=== PATIENT | male | born 1950 | race Caucasian/White ===

== ENCOUNTER 2016-06-25 12:03 | Inpatient (IN) ==
[2016-06-25 13:26] LABS: Hematocrit 32.1 % (37.5-50.1); Hemoglobin 10.4 g/dL (12.9-16.9); Immature Granulocytes % 0.5 % (0-4); Lymphocytes # 0.5 K/mcL (0.6-4.6); Lymphocytes % 5.7 %; Mean Corpuscular HGB Conc 32.4 g/dL (31.6-35.5); Mean Corpuscular Hemoglobin 29.9 pg (28.0-33.3); Mean Corpuscular Volume 92.2 fL (83.0-100.0); Mean Platelet Volume 9.3 fL (9.4-12.4); Monocytes # 0.3 K/mcL (0.0-1.3); Monocytes % 3.3 %; Neutrophils # 8.4 K/mcL (1.6-8.9); Platelet Count 216 K/mcL (140-400); Red Blood Count 3.48 M/mcL (4.19-5.50); Red Cell Distribution Width 13.5 % (11.5-14.5); Segmented Neutrophils % 90.5 %
[2016-06-25 13:39] LABS: INR 1.1; Prothrombin Time 11.7 Seconds (9.4-12.1)
[2016-06-25 13:42] LABS: Activated Partial Thrombo Time 24.7 Seconds (26.0-36.0)
[2016-06-25 13:43] LABS: Alanine Aminotransferase 14 Units/L (0-55); Albumin 2.9 g/dL (3.5-5.0); Albumin/Globulin Ratio 1.1 (1.1-2.2); Alkaline Phosphatase 53 Units/L (38-126); Aspartate Amino Transferase 11 Units/L (5-34); BUN/Creatinine Ratio 62 (6-26); Bilirubin,Total 0.9 mg/dL (0.2-1.2); Blood Urea Nitrogen 55 mg/dL (8-26); Calcium 8.5 mg/dL (8.6-10.8); Carbon Dioxide 20 mEq/L (19-29); Chloride 111 mEq/L (98-109); Globulin 2.6 g/dL (2.4-3.5); Glucose 162 mg/dL (70-99); Osmolality,Calculated 303 (280-300); Potassium 6.2 mEq/L (3.5-4.5); Sodium 137 mEq/L (136-145); Total Protein 5.5 g/dL (6.0-8.3); eGFR For African Americans > 60 (> 60); eGFR For Non-African Americans > 60 (> 60)
[2016-06-25] MEDS ORDERED: 0.9 % Sodium Chloride 1,000 ML ONE (13:48)
[2016-06-25] MEDS ORDERED: 0.9 % Sodium Chloride 1,000 ML IVC ONE ×3 (13:53→14:57)
[2016-06-25] MEDS ORDERED: Ondansetron 4 MG/2 ML VIAL IVP ONE (13:54)
[2016-06-25] MEDS ORDERED: Calcium Gluconate 1,000 MG in D5% in Water 100 ML IVPB ONE (13:54)
[2016-06-25] MEDS ORDERED: Insulin Human Regular 10 UNIT in 0.9 % Sodium Chloride 10 ML IV ONE (13:55)
[2016-06-25] MEDS ORDERED: *HR* Dextrose 50 % in Water (Syg) 50 ML SYRINGE IVP STA (13:55)
[2016-06-25] MEDS ORDERED: Albuterol 2.5 MG/3 ML NEBULIZER IH ONE (13:56)
[2016-06-25] MEDS ORDERED: Albuterol 2.5 MG/3 ML NEBULIZER ONE (14:13)
--- NOTE | 2016-06-25 14:35 | Emergency Department Note ---
START Narrative - START START: I examined this patient and my medical decision-making was reviewed with the BENEFITS CLERK/PA/Advanced Practice Nurse/Resident Physician. I agree with the documented findings, disposition and treatment plan as described except to the extent set forth below. ED attending: Patient's emergency medicine resident Dr. Whittaker. Please see copy of this note for H&P evaluation and management and ED disposition. We both had independent [id number] time in contact with this patient. Briefly: 65-year-old male history of GI bleed 2 in the past with first-time requiring partial colectomy presents with 2 episodes this morning of vomiting up blood. Says he just feels a little weak at this time. Denies any dark stools. Denies abdominal pain. Or nausea. Denies shortness of breath or chest pain. He is pale hypotensive. Abdomen is surgically benign. Patient will be provided 45 minutes critical care service for this patient. Labs and IV fluid resuscitation is in progress. Admission anticipated. Disposition pending.
--- NOTE | 2016-06-25 14:42 | Emergency Department Note ---
Disposition Clinical Impression: Upper gastrointestinal hemorrhage, Hyperkalemia Hypotension Qualifiers: Hypotension type: unspecified hypotension type Qualified Code(s): I95.9 - Hypotension, unspecified Disposition: Admitted As Inpatient Condition: Good Time of Disposition: 15:32 General Adult HPI - General Chief complaint: ED GI Bleed Stated complaint: Vomiting blood, bleeding ulcer, ALFRED Time Seen by Provider: 06/25/16 12:14 Source: patient Limitations: no limitations Nursing Notes Reviewed: Yes Vital Signs Reviewed: Yes - History of Present Illness HPI Narrative: Patient began having dark coffee-ground emesis this morning. 4 episodes. Complains of being lightheaded with this. Does have a history of this. Over 7 years ago. Has had several gastric surgeries due to GI bleeding. Pain Scale: 0 - Related Data Allergies Allergy/AdvReac Type Severity Reaction Status Date / Time No Known Allergies Allergy Unverified 11/20/14 10:51 All systems ED: reviewed and negative except as stated. Constitutional: Denies: fever, chills ENT ED: Denies: throat pain, congestion Cardiovascular: Denies: chest pain, palpitations, syncope Respiratory: Denies: cough, dyspnea Gastrointestinal: Reports: vomiting, hematemesis. Denies: abdominal pain, nausea, diarrhea, melena, hematochezia Genitourinary: Denies: urgency, dysuria, testicular mass Musculoskeletal: Denies: back pain, neck pain Integumentary: Denies: rash, abrasion Neurological: Denies: headache, weakness Past Medical History - Past Medical History Attestation: Yes The following information was validated with the patient. Medical history: Reports: GI bleed, other Psychiatric history: Reports: no psych history - Social History Smoking Status: Never smoker Smokeless Tobacco Status: No Alcohol use: Reports: recent Drug use: Reports: none Physical Exam - General Limitations: no limitations General appearance: alert, in no apparent distress - Head Head exam: atraumatic, normocephalic - Eye Eye exam: Present: normal appearance, PERRL, EOMI - ENT ENT exam: normal exam, normal oropharynx, mucous membranes moist - Neck Neck exam: Present: normal inspection, full ROM. Absent: meningismus, lymphadenopathy - Chest Chest inspection: Present: normal inspection, symmetric chest wall rise - Respiratory Respiratory exam: Present: normal lung sounds bilaterally, respiratory distress - Cardiovascular Cardiovascular exam: Present: regular rate, normal rhythm, normal heart sounds - Abdominal Exam Abdominal exam: Present: soft, Non-Tender, normal bowel sounds - Extremities Exam Extremities exam: Present: normal inspection, full ROM - Back Exam Back exam: Present: normal inspection - Neurological Exam Neurological exam: Present: alert, oriented X3 - Psychiatric Psychiatric exam: Present: normal affect, normal mood - Skin Skin exam: Present: warm, dry, intact, normal color. Absent: rash, cyanosis, diaphoresis Course Course Narrative: Dark vomit 3 episodes this morning. Does have a history of gastric ulcers these had several surgeries and part of his stomach removed for. States that this just started this morning. Denies any blood per rectum or dark stools. He denies any shortness of breath or chest pain. He states that he does feel weak and tired. This is consistent from his previous bleeding episodes. He does drink a significant amount of alcohol. He states he was absent for a year and just recently started drinking again. He describes this as about 2 beers and 1 shot a day. Basic lab workup showed a hemoglobin in the tens. Increased lactic acid and it increased potassium. His T waves are peaked. We will give him calcium gluconate while he is here and began insulin and glucose to help lower this. I will contact our GI team today. We will give the patient a fluid bolus due to his hypotensive status. Patient is hyperkalemic. He states he does not take any exogenous potassium. He denies any abdominal pain shortness of breath or chest pain. - Reevaluation(s) Reevaluation #1: Patient's hemoglobin is 10. Will start patient on Protonix and given a Protonix drip as well. Dr. Crenshaw the patient will omit the patient to the hospital. Time: 15:30 Reevaluation #2: Patient was hypotensive with a systolic in the mid to high 80s. After liters normal saline IV fluid bolus was in the low 90s. Patient had to Dr. Bonilla from GI come down to evaluate the patient and recommended IV Protonix bolus and drip which was given. Total time of critical care services provided to this patient was 1 hour and 10 minutes. Patient is getting an emergent EGD at this time. Patient admitted in stable but guarded condition Time: 16:50 - Consultations Consultation #1: Spoke with Dr Crenshaw. He is coming to see the Pt now. Time: 14:53 Consultation #2: Dr Amaya accepted Pt in stable condition. Time: 15:29 Vital Signs Temperature 97.7 F 06/25/16 12:11 Pulse Rate 123 06/25/16 12:11 Respiratory Rate 18 06/25/16 12:11 Blood Pressure 120/84 06/25/16 12:11 O2 Sat by Pulse Oximetry 100 06/25/16 12:11 Temperature 99.0 F 06/25/16 16:15 Pulse Rate 101 06/25/16 16:26 Respiratory Rate 16 06/25/16 16:26 Blood Pressure 87/48 06/25/16 16:26 O2 Sat by Pulse Oximetry 97 06/25/16 16:26 Oxygen Delivery Oxygen Delivery Room Air Medical Decision Making - Medical Records Medical records reviewed: Yes I reviewed the patient's medical records. - Lab Data Lab results reviewed: Yes I reviewed the patient's lab results. Result diagrams: 06/25/16 13:16 06/25/16 13:16 Lab Results 06/25/16 06/25/16 06/25/16 Range/Units 13:16 13:16 13:16 WBC 9.2 (4.3-11.1) K/mcL RBC 3.48 L (4.19-5.50) M/mcL Hgb 10.4 L (12.9-16.9) g/dL Hct 32.1 L (37.5-50.1) % MCV 92.2 (83.0-100.0) fL MCH 29.9 (28.0-33.3) pg MCHC 32.4 (31.6-35.5) g/dL RDW 13.5 (11.5-14.5) % Plt Count 216 (140-400) K/mcL MPV 9.3 L (9.4-12.4) fL Immature Gran % 0.5 (0-4) % Seg Neutrophils % 90.5 % Lymphocytes % 5.7 % Monocytes % 3.3 % Eosinophils % 0.0 % Basophils % 0.0 % Neutrophils # 8.4 (1.6-8.9) K/mcL Lymphocytes # 0.5 L (0.6-4.6) K/mcL Monocytes # 0.3 (0.0-1.3) K/mcL Eosinophils # 0.0 (0.0-0.6) K/mcL Basophils # 0.0 (0.0-0.2) K/mcL PT 11.7 (9.4-12.1) Seconds INR 1.1 APTT 24.7 L (26.0-36.0) Seconds Sodium 137 (136-145) mEq/L Potassium 6.2 H (3.5-4.5) mEq/L Chloride 111 H (98-109) mEq/L Carbon Dioxide 20 (19-29) mEq/L BUN 55 H (8-26) mg/dL Creatinine 0.89 (0.72-1.25) mg/dL Est GFR ( Amer) > 60 (> 60) Est GFR (Non-Af Amer) > 60 (> 60) BUN/Creatinine Ratio 62 H (6-26) Glucose 162 H (70-99) mg/dL Calculated Osmolality 303 H (280-300) Lactic Acid (0.5-2.2) mmol/L Calcium 8.5 L (8.6-10.8) mg/dL Total Bilirubin 0.9 (0.2-1.2) mg/dL AST 11 (5-34) Units/L ALT 14 (0-55) Units/L Alkaline Phosphatase 53 (38-126) Units/L Troponin I (0-0.03) ng/mL Serum Total Protein 5.5 L (6.0-8.3) g/dL Albumin 2.9 L (3.5-5.0) g/dL Globulin 2.6 (2.4-3.5) g/dL Albumin/Globulin Ratio 1.1 (1.1-2.2) Blood Type Antibody Screen 06/25/16 06/25/16 06/25/16 Range/Units 13:16 13:16 13:16 WBC (4.3-11.1) K/mcL RBC (4.19-5.50) M/mcL Hgb (12.9-16.9) g/dL Hct (37.5-50.1) % MCV (83.0-100.0) fL MCH (28.0-33.3) pg MCHC (31.6-35.5) g/dL RDW (11.5-14.5) % Plt Count (140-400) K/mcL MPV (9.4-12.4) fL Immature Gran % (0-4) % Seg Neutrophils % % Lymphocytes % % Monocytes % % Eosinophils % % Basophils % % Neutrophils # (1.6-8.9) K/mcL Lymphocytes # (0.6-4.6) K/mcL Monocytes # (0.0-1.3) K/mcL Eosinophils # (0.0-0.6) K/mcL Basophils # (0.0-0.2) K/mcL PT (9.4-12.1) Seconds INR APTT (26.0-36.0) Seconds Sodium (136-145) mEq/L Potassium (3.5-4.5) mEq/L Chloride (98-109) mEq/L Carbon Dioxide (19-29) mEq/L BUN (8-26) mg/dL Creatinine (0.72-1.25) mg/dL Est GFR ( Amer) (> 60) Est GFR (Non-Af Amer) (> 60) BUN/Creatinine Ratio (6-26) Glucose (70-99) mg/dL Calculated Osmolality (280-300) Lactic Acid 2.8 H (0.5-2.2) mmol/L Calcium (8.6-10.8) mg/dL Total Bilirubin (0.2-1.2) mg/dL AST (5-34) Units/L ALT (0-55) Units/L Alkaline Phosphatase (38-126) Units/L Troponin I 0.01 (0-0.03) ng/mL Serum Total Protein (6.0-8.3) g/dL Albumin (3.5-5.0) g/dL Globulin (2.4-3.5) g/dL Albumin/Globulin Ratio (1.1-2.2) Blood Type O POSITIVE Antibody Screen NEGATIVE - EKG Data EKG #1 EKG attestation: Yes I reviewed and interpreted this EKG. EKG results narrative: Normal sinus rhythm at a rate of 123. HI interval is 159. QRS duration is 81. QT is 270. QTC is 343. There are peaked T waves in leads V2 V3 and V4. There are no signs of acute ischemia.
[2016-06-25] MEDS ORDERED: Pantoprazole 80 MG in 0.9 % Sodium Chloride 50 ML IVPB ONE (15:25)
[2016-06-25] MEDS ORDERED: Tetracaine/Benzocaine/Butamben 200MG/SPRAY (100SPY/BOT) MM ONE (15:45)
[2016-06-25] MEDS ORDERED: Simethicone 40 MG/0.6 ML MLS IR ONE (15:45)
[2016-06-25] MEDS ORDERED: 0.9 % Sodium Chloride 500 ML IVC SCH (15:45)
[2016-06-25] MEDS ORDERED: *HR* Midazolam HCl 5 MG/5 ML VIAL IVP ONE (15:49)
[2016-06-25] MEDS ORDERED: *HR* FentaNYL (PF) 100 MCG/2 ML VIAL ONE (15:51)
[2016-06-25] MEDS ORDERED: Acetaminophen 325 MG TABLET PO PRN (16:09)
[2016-06-25] MEDS ORDERED: Naloxone 0.4 MG/ML INJ IVP PRN (16:09)
[2016-06-25] MEDS: *HR* FentaNYL (PF) 100 MCG/2 ML VIAL IVP PRN ×2 (16:18→16:20)
[2016-06-25] MEDS: *HR* Midazolam HCl 5 MG/5 ML VIAL IVP PRN ×2 (16:18→16:20)
--- NOTE | 2016-06-25 16:49 | Internal Med History&Physical ---
Date of Encounter: 06/25/16 Time of Encounter: 16:00 Assessment and Plan (1) Upper gastrointestinal hemorrhage Current visit: Yes Status: Acute Patient with acute upper GI bleed/hematemesis. Hemoglobin 10.6. Will monitor blood counts closely. GI consulted. Plan for upper GI endoscopy. IV PPI drip. High risk for complications. (2) Hyperkalemia Current visit: Yes Status: Acute Potassium 6.2. Patient was given temporizing measures in the ER with albuterol , insulin, calcium gluconate. We will recheck levels. Internal Medicine - H&P: HPI Chief complaint: Hematemesis Admitted From: Emergency Dept Plans for Post Hospital Care: Home History of present illness: Mr. Nolasco is a 65 year old male patient with history of prior peptic ulcer disease and Whipple's procedure presented to the ER with complaints of hematemesis that began earlier this morning. He developed episodes of dark- colored bloody hematemesis without any associated abdominal pain. He has not had any episodes of hematemesis for about 7-8 years. Complaints of lightheadedness and dizziness associated with it. No melena or hematochezia. No diarrhea or constipation. He does not take any medications including over the counter medications Past Med Surg Social Fam HX - Past Medical History Attestation: Yes The following information was validated with the patient. Source: patient Medical history: GI bleed, other Psychiatric history: no psych history - Past Surgical History Surgical History: other (Whipple's procedure) - Social History Smoking Status: Never smoker Smokeless Tobacco Status: No Alcohol use: recent Drug use: none Internal Medicine - H&P: Meds Allergies No Known Allergies Allergy (Unverified 11/20/14 10:51) All Systems PM: A 10-system review of systems was performed and is negative for pertinent findings except as documented above in the HPI. - Constitutional Constitutional: no chills, no fever(s), no night sweats - EENT Eyes: no change in vision, no discharge, no pain, no photophobia Ears: no ear discharge, no ear pain, no tinnitus Nose, mouth and throat: no dysphagia, no nasal discharge, no neck pain, no sore throat - Cardiovascular Cardiovascular ROS IM: no chest pain, no diaphoresis, no dyspnea, no lightheadedness, no palpitations, no syncope - Respiratory Respiratory: no cough, no dyspnea, no wheezing, no excessive phlegm production - Gastrointestinal Gastrointestinal: hematemesis, no abdominal pain, no diarrhea, no hematochezia, no melena, no nausea, no vomiting - Musculoskeletal Musculoskeletal ROS IM: no numbness, no tingling - Integumentary Integumentary IM: no rash, no unusual bruising - Neurological Neurological ROS: no confusion, no convulsions, no focal weakness, no numbness, no tingling, no tremor(s) - Hematologic/Lymphatic Hematologic/Lymphatic: no easy bruising - Constitutional Vitals: Temp Pulse Resp BP Pulse Ox 99.0 F 101 16 87/48 97 06/25/16 16:15 06/25/16 16:26 06/25/16 16:26 06/25/16 16:26 06/25/16 16:26 General appearance: Present: cooperative, mild distress, A&O X 3, answers questions appropriately - Eye Eye exam: Present: EOMI, PERRL, conjuntiva pink, sclera anicteric - Neck Neck exam general surgery: Present: supple, trachea midline. Absent: lymphadenopathy - Respiratory Respiratory exam: Present: CTAB. Absent: accessory muscle use, rales, rhonchi, wheezes - Cardiovascular Cardiovascular exam: Present: RRR, +S1, +S2. Absent: diastolic murmur, gallop, rubs, systolic murmur - GI/Abdominal GI/Abdominal exam: Present: normal bowel sounds, soft, no peritoneal signs. Absent: distended, tenderness - Extremities Exam Extremities exam: Present: warm, radial pulses palpable and symetrical. Absent : calf tenderness, cyanotic, pedal edema - Neurological Exam Neurological exam: Present: alert, oriented X3, no focal deficits. Absent: facial droop, speech deficit - Skin Skin exam: Present: dry, intact, pallor Internal Med - H&P Results - Labs CBC & Chem 7: 06/25/16 13:16 06/25/16 13:16 - Attending Attestation This document has been at least partially created by [employer] recognition technology by Dr. Amaya. Errors in grammar, wording or other phrases may exist. If errors are found after the documentation is signed, they will be addressed individually in the addendum section of this document when appropriate.
--- NOTE | 2016-06-25 16:50 | Gastroenterology Consult Note ---
Date of Encounter: 06/27/16 Time of Encounter: 17:00 - Time Spent With Patient Total time spent is greater than 50% in coordination of care (as documented) at patient's floor/unit and/or counseling patient: GI History of Present Illness - Data of Consult Requesting Physician: Lele Pimentel - Consult Narrative Reason for consult: Coffee-ground emesis History of present illness: Mr. Nolasco is a 65 year old male Past Med Surg Social Fam HX - Past Medical History Medical history: GI bleed, other Psychiatric history: no psych history - Social History Smoking Status: Never smoker Smokeless Tobacco Status: No Alcohol use: recent Drug use: none - Family History Father Living Status: Hx Family Cardiac Disorders: Yes (HI) Mother Living Status: - Constitutional Vitals: Temp Pulse Resp BP Pulse Ox 97.7 F 96 18 115/66 97 06/25/16 12:11 06/25/16 14:48 06/25/16 15:38 06/25/16 15:38 06/25/16 15:38 Results - Labs CBC & Chem 7: 06/28/16 03:17 06/28/16 03:17 Labs: Last Result Calcium 8.5 mg/dL (8.6-10.8) L 06/25/16 13:16 Troponin I 0.01 ng/mL (0-0.03) 06/25/16 13:16 Entire Visit Hgb 10.4 g/dL (12.9-16.9) L 06/25/16 13:16 Hct 32.1 % (37.5-50.1) L 06/25/16 13:16 PT 11.7 Seconds (9.4-12.1) 06/25/16 13:16 Total Bilirubin 0.9 mg/dL (0.2-1.2) 06/25/16 13:16 AST 11 Units/L (5-34) 06/25/16 13:16 ALT 14 Units/L (0-55) 06/25/16 13:16 - ABG ABG results: PT/INR, D-dimer PT 11.7 Seconds (9.4-12.1) 06/25/16 13:16 Consult Discharge Plan - Plan Referrals: Pito Nelson DO [Primary Care Provider] - 07/08/16 9:30 am NO,PCP [Non-Partnered Physician] -
[2016-06-25] MEDS: Pantoprazole 40 MG in 0.9 % Sodium Chloride Mini Bag 100 ML IVC SCH ×2 (17:36→21:13)
[2016-06-25 18:40] LABS: Bilirubin,Urine Negative (Negative); Blood,Urine Negative (Negative); Clarity,Urine Clear (Clear); Color,Urine Yellow (Yellow); Glucose,Urine (UA) 100 mg/dL (Normal); Ketones,Urine Negative (Negative); Leukocyte Esterase,Urine Negative (Negative); Nitrite,Urine Negative (Negative); Protein,Urine Negative (Neg-Trace); Specific Gravity,Urine 1.023 (1.010-1.025); Urobilinogen,Urine Normal (Normal)
[2016-06-25 20:24] LABS: Hematocrit 22.1 % (37.5-50.1)
[2016-06-25 20:25] LABS: Hemoglobin 7.4 g/dL (12.9-16.9)
[2016-06-26] MEDS: Pantoprazole 40 MG in 0.9 % Sodium Chloride Mini Bag 100 ML IVC SCH ×4 (02:03→19:41)
[2016-06-26 02:29] LABS: Eosinophils % 0.1 %; Hematocrit 21.3 % (37.5-50.1); Hemoglobin 7.1 g/dL (12.9-16.9); Immature Granulocytes % 0.4 % (0-4); Lymphocytes # 1.3 K/mcL (0.6-4.6); Lymphocytes % 17.9 %; Mean Corpuscular HGB Conc 33.3 g/dL (31.6-35.5); Mean Corpuscular Hemoglobin 30.6 pg (28.0-33.3); Mean Corpuscular Volume 91.8 fL (83.0-100.0); Mean Platelet Volume 9.1 fL (9.4-12.4); Monocytes # 0.8 K/mcL (0.0-1.3); Monocytes % 11.3 %; Platelet Count 129 K/mcL (140-400); Red Blood Count 2.32 M/mcL (4.19-5.50); Segmented Neutrophils % 70.3 %
[2016-06-26 02:42] LABS: BUN/Creatinine Ratio 54 (6-26); Blood Urea Nitrogen 43 mg/dL (8-26); Calcium 7.6 mg/dL (8.6-10.8); Carbon Dioxide 18 mEq/L (19-29); Chloride 115 mEq/L (98-109); Glucose 115 mg/dL (70-99); Osmolality,Calculated 300 (280-300); Potassium 4.9 mEq/L (3.5-4.5); Sodium 139 mEq/L (136-145); eGFR For African Americans > 60 (> 60); eGFR For Non-African Americans > 60 (> 60)
--- NOTE | 2016-06-26 12:43 | Internal Med Progress Note ---
Date of Encounter: 06/26/16 Time of Encounter: 12:37 - Assessment and plan (1) Acute blood loss anemia Current Visit: Yes Status: Acute Assessment and plan: secondary to gastric ulcer, with hypovolemia Protonix IV BID, EGD performed by Dr Crenshaw on 06/25/16 order 1 unit of RBCs, monitor cbc advance diet may discharge in the morning if stable await biopsy report to consider H pylori treatment if positive (2) Gastric ulcer Current Visit: Yes Status: Acute Qualifiers: Gastric ulcer chronicity: acute Gastric ulcer complication status: with hemorrhage Qualified Code(s): K25.0 - Acute gastric ulcer with hemorrhage (3) Upper gastrointestinal hemorrhage Current Visit: Yes Status: Acute (4) Hyperkalemia Current Visit: Yes Status: Acute Assessment and plan: resolved - Subjective Interval history: denies any further vomiting, no hematimesis, had dark stool earlier today, no CP or SOB, no dysuria, no dizziness - Constitutional Vitals: Temp Pulse Resp BP Pulse Ox 97.3 F L 92 16 100/61 98 06/26/16 10:48 06/26/16 10:48 06/26/16 10:48 06/26/16 10:48 06/26/16 10:48 General appearance: Present: cooperative, mild distress, A&O X 3, answers questions appropriately - Head Head exam: Present: atraumatic, normocephalic - Eye Eye exam: Present: PERRL, conjuntiva pink, sclera anicteric Pupils: Present: PERRL - Neck Neck exam general surgery: Present: supple, trachea midline. Absent: lymphadenopathy - Respiratory Respiratory exam: Present: CTAB. Absent: accessory muscle use, rales, rhonchi, wheezes - Cardiovascular Cardiovascular exam: Present: RRR, +S1, +S2. Absent: diastolic murmur, gallop, rubs, systolic murmur - GI/Abdominal GI/Abdominal exam: Present: normal bowel sounds, soft, no peritoneal signs. Absent: distended, tenderness - Extremities Exam Extremities exam: Present: warm, radial pulses palpable and symetrical. Absent : calf tenderness, cyanotic, pedal edema - Neurological Exam Neurological exam: Present: CN II-XII intact, oriented X3, no focal deficits. Absent: pronater drift, facial droop, speech deficit - Skin Skin exam: Present: dry, intact Internal Medicine: Result - Labs CBC & Chem 7: 06/26/16 02:22 06/26/16 02:22 Labs: Short CBC 06/25/16 06/26/16 Range/Units 20:18 02:22 WBC 7.1 (4.3-11.1) K/mcL Hgb 7.4 L D 7.1 L (12.9-16.9) g/dL Hct 22.1 L 21.3 L (37.5-50.1) % Plt Count 129 L (140-400) K/mcL Neutrophils # 5.0 (1.6-8.9) K/mcL BMP 06/25/16 06/26/16 20:18 02:22 Sodium 139 Potassium 4.2 D 4.9 H Chloride 115 H Carbon Dioxide 18 L BUN 43 H D Creatinine 0.79 Glucose 115 H Calcium 7.6 L Urine 06/25/16 Range/Units 15:42 Urine Color Yellow (Yellow) Urine Clarity Clear (Clear) Urine pH 6.0 (5.0-8.0) pH Units Ur Specific [place] 1.023 (1.010-1.025) Urine Protein Negative (Neg-Trace) mg/dL Urine Glucose (UA) 100 H (Normal) mg/dL - ABG Interpretation ABG results: PT/INR, D-dimer PT 11.7 Seconds (9.4-12.1) 06/25/16 13:16 Consult Discharge Plan - Plan Referrals: NO,PCP [Primary Care Provider] -
--- NOTE | 2016-06-26 12:47 | Electrocardiograph Report ---
[address] [address] Test Date: 2016-06-25 Pat Name: Reynold Nolasco Department: 102 Room: 3A Gender: M Transcripter: Am : 1950 Requested By: Hany Meek Order Number: [id number] Reading MD: Hany Valdez Measurements Intervals [place] Rate: 123 P: 49 PA: 159 QRS: 47 QRSD: 81 T: 49 QT: 270 QTc: 343 Interpretive Statements SINUS TACHYCARDIA ABNORMAL RHYTHM ECG Electronically Signed On 06-26-2016 12:46:12 EDT by Hany Valdez
[2016-06-26] MEDS ORDERED: 0.9 % Sodium Chloride 250 ML ONE ×3 (14:14→22:46)
[2016-06-26 17:09] LABS: Basophils % 0.1 %; Eosinophils # 0.1 K/mcL (0.0-0.6); Eosinophils % 0.8 %; Hematocrit 20.2 % (37.5-50.1); Hemoglobin 6.7 g/dL (12.9-16.9); Immature Granulocytes % 0.6 % (0-4); Immature Platelets 2.5 % (1.1-6.1); Lymphocytes # 1.6 K/mcL (0.6-4.6); Lymphocytes % 22.8 %; Mean Corpuscular HGB Conc 33.2 g/dL (31.6-35.5); Mean Corpuscular Hemoglobin 30.2 pg (28.0-33.3); Mean Platelet Volume 9.1 fL (9.4-12.4); Monocytes # 0.7 K/mcL (0.0-1.3); Monocytes % 9.4 %; Neutrophils # 4.7 K/mcL (1.6-8.9); Platelet Count 155 K/mcL (140-400); Red Blood Count 2.22 M/mcL (4.19-5.50); Red Cell Distribution Width 14.8 % (11.5-14.5); Segmented Neutrophils % 66.3 %
[2016-06-26] MEDS ORDERED: Pantoprazole 40 MG VIAL IVP SCH (18:00)
[2016-06-26] MEDS ORDERED: 0.9 % Sodium Chloride 1,000 ML ONE (19:12)
--- NOTE | 2016-06-26 19:41 | Event Note ---
Date of Encounter: 06/26/16 Time of Encounter: 19:36 The patient became dizzy tachycardic in the 130 while getting a transfusion of blood. CXR did not show any pulm edema, but is worrisome for pneumothorax vs skin fold. Dr Crenshaw recommended to restart Protonix drip ( was switched to protonix 40 mg BID IV), will get 2 more units of RBCs. Was trasnferred to 2N BP is stable but still tachycardic. Lungs sound clear. Dr Larson was made aware of the patient's status will call Dr Crenshaw if the patient decompensates. Has 2 IV lines. RN is aware. Risk were explained to the patient and the family. COnsider ICU if worse. Order CT of the chest without contrast after getting 2nd unit of RBCs to rule pneumothorax out
[2016-06-27] MEDS: Pantoprazole 40 MG in 0.9 % Sodium Chloride Mini Bag 100 ML IVC SCH ×5 (00:44→22:03)
[2016-06-27] MEDS: 0.9 % Sodium Chloride 1,000 ML IVC SCH ×3 (04:15→20:11)
[2016-06-27 04:49] LABS: Hematocrit 21.6 % (37.5-50.1); Hemoglobin 7.2 g/dL (12.9-16.9); Mean Corpuscular HGB Conc 33.3 g/dL (31.6-35.5); Mean Corpuscular Hemoglobin 29.4 pg (28.0-33.3); Mean Corpuscular Volume 88.2 fL (83.0-100.0); Mean Platelet Volume 9.7 fL (9.4-12.4); Red Blood Count 2.45 M/mcL (4.19-5.50); Red Cell Distribution Width 15.1 % (11.5-14.5)
[2016-06-27 04:53] LABS: Immature Platelets 3.7 % (1.1-6.1)
[2016-06-27 04:59] LABS: BUN/Creatinine Ratio 43 (6-26); Calcium 6.9 mg/dL (8.6-10.8); Carbon Dioxide 20 mEq/L (19-29); Chloride 113 mEq/L (98-109); Glucose 116 mg/dL (70-99); Osmolality,Calculated 290 (280-300); Potassium 4.3 mEq/L (3.5-4.5); Sodium 136 mEq/L (136-145); eGFR For African Americans > 60 (> 60); eGFR For Non-African Americans > 60 (> 60)
[2016-06-27 05:03] LABS: Blood Urea Nitrogen 31 mg/dL (8-26)
[2016-06-27] MEDS ORDERED: Calcium Gluconate 1,000 MG in D5% in Water 100 ML IVPB ONE (08:01)
--- NOTE | 2016-06-27 08:05 | Internal Med Progress Note ---
Date of Encounter: 06/27/16 Time of Encounter: 08:03 - Assessment and plan (1) Acute blood loss anemia Current Visit: Yes Status: Acute Assessment and plan: secondary to gastric ulcer, with hypovolemia Hb still 7.2 after 3 units of RBCs Protonix IV drip, EGD performed by Dr Crenshaw on 06/25/16, might repeat EGD today order 2 more units of RBCs, monitor cbc NPO await biopsy report to consider H pylori treatment if positive high risk (2) Gastric ulcer Current Visit: Yes Status: Acute Qualifiers: Gastric ulcer chronicity: acute Gastric ulcer complication status: with hemorrhage Qualified Code(s): K25.0 - Acute gastric ulcer with hemorrhage (3) Upper gastrointestinal hemorrhage Current Visit: Yes Status: Acute (4) Hyperkalemia Current Visit: Yes Status: Acute Assessment and plan: resolved - Subjective Interval history: [place] light headed yesterday, was tachycardic and dizzy. Much better today after receiving 3 unit sof RBCs. denies any further vomiting, no hematimesis, had dark stools, no CP or SOB, no dysuria, no dizziness at the moment - Constitutional Vitals: Temp Pulse Resp BP Pulse Ox 97.5 F L 83 18 111/62 100 06/27/16 06:55 06/27/16 06:55 06/27/16 06:55 06/27/16 06:55 06/27/16 06:55 General appearance: Present: cooperative, mild distress, A&O X 3, answers questions appropriately - Head Head exam: Present: atraumatic, normocephalic - Eye Eye exam: Present: PERRL, conjuntiva pink, sclera anicteric Pupils: Present: PERRL - Neck Neck exam general surgery: Present: supple, trachea midline. Absent: lymphadenopathy - Respiratory Respiratory exam: Present: CTAB. Absent: accessory muscle use, rales, rhonchi, wheezes - Cardiovascular Cardiovascular exam: Present: RRR, +S1, +S2. Absent: diastolic murmur, gallop, rubs, systolic murmur - GI/Abdominal GI/Abdominal exam: Present: normal bowel sounds, soft, no peritoneal signs. Absent: distended, tenderness - Extremities Exam Extremities exam: Present: warm, radial pulses palpable and symetrical. Absent : calf tenderness, cyanotic, pedal edema - Neurological Exam Neurological exam: Present: CN II-XII intact, oriented X3, no focal deficits. Absent: pronater drift, facial droop, speech deficit - Skin Skin exam: Present: dry, intact Internal Medicine: Result - Labs CBC & Chem 7: 06/27/16 04:32 06/27/16 04:32 Labs: Short CBC 06/27/16 Range/Units 04:32 WBC 5.4 (4.3-11.1) K/mcL Hgb 7.2 L (12.9-16.9) g/dL Hct 21.6 L (37.5-50.1) % Plt Count 104 L (140-400) K/mcL BMP 06/27/16 04:32 Sodium 136 Potassium 4.3 Chloride 113 H Carbon Dioxide 20 BUN 31 H D Creatinine 0.72 Glucose 116 H Calcium 6.9 L - ABG Interpretation ABG results: PT/INR, D-dimer PT 11.7 Seconds (9.4-12.1) 06/25/16 13:16 Consult Discharge Plan - Plan Referrals: NO,PCP [Primary Care Provider] -
[2016-06-27] MEDS ORDERED: 0.9 % Sodium Chloride 250 ML ONE ×2 (08:36→13:11)
--- NOTE | 2016-06-27 12:35 | Gastroenterology Consult Note ---
<Loc Tang - Last Filed: 06/27/16 12:33> Date of Encounter: 06/27/16 Time of Encounter: 10:20 - Assessment and plan (1) Upper gastrointestinal hemorrhage Current Visit: Yes Status: Acute Assessment and plan: EGD was completed 06/[address] Crenshaw which showed normal esophagus, nonbleeding gastric ulcer 14 mm in largest dimension, large amount of food residue in stomach. Plan to repeat EGD today. Keep NPO. Continue PPI drip. (2) Acute blood loss anemia Current Visit: Yes Status: Acute Assessment and plan: Hgb was 10.4 on admission and dropped to 6.7 on 06/26. He received 3 units PRBC yesterday, and , this AM Hgb 7.2. Plan to repeat EGD today. Keep NPO. Continue PPI drip. (3) Gastric ulcer Current Visit: Yes Status: Acute Assessment and plan: Noted on EGD 06/25. Plan to repeat EGD today. Keep NPO. Continue PPI drip. Qualifiers: Gastric ulcer chronicity: acute Gastric ulcer complication status: with hemorrhage Qualified Code(s): K25.0 - Acute gastric ulcer with hemorrhage - Time Spent With Patient Total time spent is greater than 50% in coordination of care (as documented) at patient's floor/unit and/or counseling patient: GI History of Present Illness - Data of Consult Patient: new to practice Consult date: 06/27/16 Requesting Physician: Lele Pimentel - Consult Narrative Reason for consult: Hematemesis History of present illness: Mr. Nolasco is a 65 year old male with PMHx of GI bleed, PUD, and Whipple's procedure who presented to the ED with c/o hematemesis. He developed episodes of dark-colored bloody hematemesis without any associated abdominal pain. He has not had any episodes of hematemesis for about 7-8 years. Complaints of lightheadedness and dizziness associated with it. Hgb was 10.4 on admission and dropped to 6.7 on 06/26. He received 3 units PRBC yesterday, and , this AM Hgb 7.2. He denies fever, chest pain, diarrhea, constipation, or hematochezia. He reports dark/black stools. He does not take any medications including over the counter medications. EGD was completed 06/[address] Crenshaw which showed normal esophagus, nonbleeding gastric ulcer 14 mm in largest dimension, large amount of food residue in stomach. Procedures: None NSAIDs: None Anticoagulation: None Past Med Surg Social Fam HX - Past Medical History Medical history: GI bleed, other Psychiatric history: no psych history - Past Surgical History Surgical History: other (Whipple's procedure) - Social History Smoking Status: Never smoker Smokeless Tobacco Status: No Alcohol use: recent Drug use: none - Family History Father Living Status: Hx Family Cardiac Disorders: Yes (OK) Mother Living Status: - Gastrointestinal Gastrointestinal: Present: as per HPI - Constitutional Constitutional: as per HPI - EENT Eyes: as per HPI Ears: Present: as per HPI Nose, mouth and throat: Present: as per HPI - Cardiovascular Cardiovascular ROS: Present: as per HPI - Respiratory Respiratory IM: Present: as per HPI - Genitourinary Genitourinary: Absent: change in color, Urinary frequency - Neurological ROS Neurological GI: Present: as per HPI - Hematologic/Lymphatic Hematologic/Lymphatic pediatric: Present: as per HPI - Musculoskeletal Musculoskeletal ROS GI: Present: as per HPI - Integumentary Integumentary GI: Present: as per HPI - Psychiatric ROS Psychiatric GI: Present: as per HPI - Endocrine Endocrine IM: Present: as per HPI - Constitutional Vitals: Temp Pulse Resp BP Pulse Ox 98.2 F 77 18 100/68 100 06/27/16 11:45 06/27/16 11:45 06/27/16 11:45 06/27/16 11:45 06/27/16 11:45 General appearance: Present: cooperative, A&O X 3, no acute distress, answers questions appropriately - Head Head exam: Present: atraumatic, normocephalic - Eye Eye exam: Present: normal appearance, sclera anicteric - ENT ENT exam: Present: mucous membranes dry - Neck Neck exam general surgery: Present: normal inspection, trachea midline - Respiratory Respiratory exam: Present: decreased breath sounds, CTAB - Cardiovascular Cardiovascular exam: Present: RRR, +S1, +S2 - GI/Abdominal GI/Abdominal exam: Present: soft, no peritoneal signs. Absent: distended, firm , guarding, tenderness - Rectal Rectal exam: Present: deferred - Extremities Exam Extremities exam: Present: warm - Neurological Exam Neurological exam: Present: no focal deficits - Psychiatric Psychiatric exam: Present: normal affect, normal mood - Skin Skin exam: Present: dry, intact, normal color, warm Results - Labs CBC & Chem 7: 06/27/16 04:32 06/27/16 04:32 Labs: Last Result Calcium 6.9 mg/dL (8.6-10.8) L 06/27/16 04:32 Troponin I 0.01 ng/mL (0-0.03) 06/25/16 13:16 Stool Occult Blood Positive (Negative) A 06/26/16 06:30 Entire Visit Hgb 7.2 g/dL (12.9-16.9) L 06/27/16 04:32 Hct 21.6 % (37.5-50.1) L 06/27/16 04:32 PT 11.7 Seconds (9.4-12.1) 06/25/16 13:16 Total Bilirubin 0.9 mg/dL (0.2-1.2) 06/25/16 13:16 AST 11 Units/L (5-34) 06/25/16 13:16 ALT 14 Units/L (0-55) 06/25/16 13:16 - ABG ABG results: PT/INR, D-dimer PT 11.7 Seconds (9.4-12.1) 06/25/16 13:16 Consult Discharge Plan - Plan Referrals: Pito Nelson DO [Primary Care Provider] - 07/08/16 9:30 am NO,PCP [Non-Partnered Physician] - <Ibeth Crenshaw - Last Filed: 06/27/16 18:31> Date of Encounter: 06/27/16 Time of Encounter: 18:00 - Time Spent With Patient Total time spent is greater than 50% in coordination of care (as documented) at patient's floor/unit and/or counseling patient: GI History of Present Illness - Data of Consult Requesting Physician: Lele Pimentel - Consult Narrative History of present illness: Mr. Nolasco is a 65 year old male - Constitutional Vitals: Temp Pulse Resp BP Pulse Ox 98.0 F 94 16 115/64 98 06/27/16 17:30 06/27/16 18:11 06/27/16 18:11 06/27/16 18:11 06/27/16 18:11 Results - Labs CBC & Chem 7: 06/27/16 17:22 06/27/16 04:32 Labs: Last Result Calcium 6.9 mg/dL (8.6-10.8) L 06/27/16 04:32 Troponin I 0.01 ng/mL (0-0.03) 06/25/16 13:16 Stool Occult Blood Positive (Negative) A 06/26/16 06:30 Entire Visit Hgb 8.1 g/dL (12.9-16.9) L 06/27/16 17:22 Hct 23.8 % (37.5-50.1) L 06/27/16 17:22 PT 11.7 Seconds (9.4-12.1) 06/25/16 13:16 Total Bilirubin 0.9 mg/dL (0.2-1.2) 06/25/16 13:16 AST 11 Units/L (5-34) 06/25/16 13:16 ALT 14 Units/L (0-55) 06/25/16 13:16 - ABG ABG results: PT/INR, D-dimer PT 11.7 Seconds (9.4-12.1) 06/25/16 13:16 - Attending Attestation I examined this patient and my medical decision-making was reviewed with the BORING MACHINE OPERATOR HORIZONTAL/PA/Advanced Practice Nurse/Resident Physician. I agree with the documented findings, disposition and treatment plan as described except to the extent set forth below.
[2016-06-27] MEDS ORDERED: *HR* FentaNYL (PF) 100 MCG/2 ML VIAL ONE (16:55)
[2016-06-27] MEDS ORDERED: *HR* Midazolam HCl 5 MG/5 ML VIAL IVP ONE (16:55)
[2016-06-27] MEDS ORDERED: Tetracaine/Benzocaine/Butamben 200MG/SPRAY (100SPY/BOT) MM ONE (17:34)
[2016-06-27] MEDS ORDERED: Simethicone 40 MG/0.6 ML MLS IR ONE (17:34)
[2016-06-27] MEDS ORDERED: *HR* FentaNYL (PF) 100 MCG/2 ML VIAL IVP PRN (17:34)
[2016-06-27 17:51] LABS: Hematocrit 23.8 % (37.5-50.1); Hemoglobin 8.1 g/dL (12.9-16.9)
[2016-06-27] MEDS: *HR* Midazolam HCl 5 MG/5 ML VIAL IVP PRN ×2 (17:58→17:59)
[2016-06-28] MEDS: 0.9 % Sodium Chloride 1,000 ML IVC SCH ×3 (01:18→07:56)
[2016-06-28] MEDS: Pantoprazole 40 MG in 0.9 % Sodium Chloride Mini Bag 100 ML IVC SCH ×2 (02:54→08:00)
[2016-06-28 04:46] LABS: Hematocrit 23.2 % (37.5-50.1); Mean Corpuscular Volume 87.9 fL (83.0-100.0); Red Blood Count 2.64 M/mcL (4.19-5.50); Red Cell Distribution Width 15.2 % (11.5-14.5)
[2016-06-28 04:48] LABS: Hemoglobin 7.9 g/dL (12.9-16.9); Immature Platelets 3.8 % (1.1-6.1); Mean Corpuscular HGB Conc 34.1 g/dL (31.6-35.5); Mean Corpuscular Hemoglobin 29.9 pg (28.0-33.3); Mean Platelet Volume 9.8 fL (9.4-12.4)
[2016-06-28 05:04] LABS: BUN/Creatinine Ratio 23 (6-26); Calcium 6.6 mg/dL (8.6-10.8); Carbon Dioxide 16 mEq/L (19-29); Chloride 113 mEq/L (98-109); Glucose 88 mg/dL (70-99); Osmolality,Calculated 280 (280-300); Potassium 3.7 mEq/L (3.5-4.5); Sodium 135 mEq/L (136-145); eGFR For African Americans > 60 (> 60); eGFR For Non-African Americans > 60 (> 60)
[2016-06-28 05:08] LABS: Blood Urea Nitrogen 14 mg/dL (8-26)
[2016-06-28] MEDS ORDERED: Naloxone 0.4 MG/ML INJ IVP PRN (09:00)
[2016-06-28] MEDS ORDERED: Acetaminophen 325 MG TABLET PO PRN (09:00)
[2016-06-28] MEDS: Pantoprazole 40 MG VIAL IVP SCH ×2 (10:19→16:51)
[2016-06-28 14:26] LABS: Hematocrit 25.1 % (37.5-50.1); Hemoglobin 8.5 g/dL (12.9-16.9)
--- NOTE | 2016-06-28 14:35 | General Surgery Consult Note ---
Date of Encounter: 06/28/16 Time of Encounter: 14:15 History of Present Illness Consult date: 06/28/16 (large bezoar, UGI hemorrhage) Requesting physician: Loc Tang History of present illness: 65-year-old male, admitted 06/25/16 after presenting to the emergency department with hematemesis, coffee-ground emesis, lightheadedness and hypotension. The findings were consistent with upper GI hemorrhage for which an EGD was completed by Dr Crenshaw, 06/25/2016. The EGD demonstrated a normal esophagus, nonbleeding gastric ulcer approximately 14 mm in greatest dimension and a large amount of residual food/bezoar in the gastric pouch. The patient was transfused without significant improvement in H&H and black tarry stool continued. The EGD was repeated 06/27/2016, with an oozing gastric ulcer described. A Hemoclip and argon plasma coagulation was applied. 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 Past medical history is otherwise unremarkable Surgical history: Whipple procedure as described; Allergies: No known drug allergies Medications: The patient is on no routine home meds Social history: Patient is , lives with spouse; he does not smoke, never has; he admits to alcohol consumption 2-3 times weekly; no admitted illicit drug use. On physical examination: Thin age-appropriate male in no acute distress. He is resting comfortably in his hospital bed. The patient is afebrile, 97.9; pulse 74-90, regular; respirations 18 and nonlabored; blood pressure 105/50. SPO2 on room air 98-100%. Lungs: Clear to auscultation, no obvious abdominal pain with deep inspiration Cardiac: Regular rate, no appreciable murmurs Abdomen: Soft, nontender without obvious intra-abdominal masses. Well- healed upper midline incision without obvious fascial defects. Active bowel sounds. Extremities without obvious clubbing cyanosis or edema Laboratories: H&H on 02/29/16, 14.8/42.3; platelet count 359,000 On presentation to the emergency department, 06/25/16, H&H 10.4/32.1 - 7.4/ 22.1 approximately 8 hours later. The patient has been transfused if most recent hemoglobin 7.9, hematocrit 23.2. Platelet count has fallen to 88,000. Impression: Upper gastrointestinal hemorrhage with endoscopic evidence of marginal ulceration related to a Whipple procedure completed in the remote past. Patient also has a large quantity of retained food/fiber in the gastric pouch. This is likely related to the Whipple procedure with possible narrowing/ stenosis of the gastro-enteric anastomosis versus surgically- induced gastroparesis and delayed emptying causing the accumulation of food and undigestible fiber. If gastric ulcer hemorrhage continues and is refractory to endoscopic control , the patient may require revision the gastroenteric anastomosis and suture ligature of the ulceration. This may be quite morbid and must be considered high risk. The patient expressed understanding and a desire to avoid surgery if at all possible. Past Med Surg Social Fam HX - Past Medical History Medical history: GI bleed, other Psychiatric history: no psych history - Past Surgical History Surgical History: other (Whipple's procedure) - Social History Smoking Status: Never smoker Smokeless Tobacco Status: No Alcohol use: recent Drug use: none - Family History Father Living Status: Hx Family Cardiac Disorders: Yes (NE) Mother Living Status: Medications and Allergies No Known Home Drugs 06/27/16 [History] Allergies No Known Allergies Allergy (Verified 06/27/16 08:47) Review of Systems All systems PM: A 10-system review of systems was performed and is negative for pertinent findings except as documented above in the HPI. General Surgery Exam Initial Vital Signs Temp Pulse Resp BP Pulse Ox 97.7 F 123 18 120/84 100 06/25/16 12:11 06/25/16 12:11 06/25/16 12:11 06/25/16 12:11 06/25/16 12:11 Exam Initial Vital Signs Temp Pulse Resp BP Pulse Ox 97.7 F 123 18 120/84 100 06/25/16 12:11 06/25/16 12:11 06/25/16 12:11 06/25/16 12:11 06/25/16 12:11 Results - Labs 06/28/16 03:17 06/28/16 03:17 Abnormal lab results WBC 4.2 K/mcL (4.3-11.1) L 06/28/16 03:17 RBC 2.64 M/mcL (4.19-5.50) L 06/28/16 03:17 Hgb 7.9 g/dL (12.9-16.9) L 06/28/16 03:17 Hct 23.2 % (37.5-50.1) L 06/28/16 03:17 RDW 15.2 % (11.5-14.5) H 06/28/16 03:17 Plt Count 88 K/mcL (140-400) L 06/28/16 03:17 APTT 24.7 Seconds (26.0-36.0) L 06/25/16 13:16 Sodium 135 mEq/L (136-145) L 06/28/16 03:17 Chloride 113 mEq/L (98-109) H 06/28/16 03:17 Carbon Dioxide 16 mEq/L (19-29) L 06/28/16 03:17 Creatinine 0.62 mg/dL (0.72-1.25) L 06/28/16 03:17 POC Glucose 92 (58-89) H 06/27/16 23:57 Calcium 6.6 mg/dL (8.6-10.8) L 06/28/16 03:17 Serum Total Protein 5.5 g/dL (6.0-8.3) L 06/25/16 13:16 Albumin 2.9 g/dL (3.5-5.0) L 06/25/16 13:16 Urine Glucose (UA) 100 mg/dL (Normal) H 06/25/16 15:42 Stool Occult Blood Positive (Negative) A 06/26/16 06:30 Diabetes panel 06/28/16 Range/Units 03:17 Sodium 135 L (136-145) mEq/L Potassium 3.7 (3.5-4.5) mEq/L Chloride 113 H (98-109) mEq/L Carbon Dioxide 16 L (19-29) mEq/L BUN 14 D (8-26) mg/dL Creatinine 0.62 L (0.72-1.25) mg/dL Glucose 88 (70-99) mg/dL Calcium 6.6 L (8.6-10.8) mg/dL Calcium panel 06/28/16 Range/Units 03:17 Calcium 6.6 L (8.6-10.8) mg/dL Pituitary panel 06/28/16 Range/Units 03:17 Sodium 135 L (136-145) mEq/L Potassium 3.7 (3.5-4.5) mEq/L Chloride 113 H (98-109) mEq/L Carbon Dioxide 16 L (19-29) mEq/L BUN 14 D (8-26) mg/dL Creatinine 0.62 L (0.72-1.25) mg/dL Glucose 88 (70-99) mg/dL Calcium 6.6 L (8.6-10.8) mg/dL Adrenal panel 06/28/16 Range/Units 03:17 Sodium 135 L (136-145) mEq/L Potassium 3.7 (3.5-4.5) mEq/L Chloride 113 H (98-109) mEq/L Carbon Dioxide 16 L (19-29) mEq/L BUN 14 D (8-26) mg/dL Creatinine 0.62 L (0.72-1.25) mg/dL Glucose 88 (70-99) mg/dL Calcium 6.6 L (8.6-10.8) mg/dL All other labs normal. Consult Discharge Plan - Plan Referrals: Pito Nelson DO [Primary Care Provider] - 07/08/16 9:30 am NO,PCP [Non-Partnered Physician] -
--- NOTE | 2016-06-28 16:31 | Internal Med Progress Note ---
Date of Encounter: 06/28/16 Time of Encounter: 10:00 - Assessment and plan (1) Acute blood loss anemia Current Visit: Yes Status: Acute Assessment and plan: secondary to gastric ulcer. Hb at 6.7. Transfused 3 units PRBC on 06/26. But hgb still 7.2 on 06/27 so he received 2 more units of PRBC. EGD performed by Dr Crenshaw on 06/25/16 showing one non-bleeding cratered gastric ulcer at the anastomosis, 14 mm. biopsies taken. Repeat EGD on 06/27 showed very large amount of food in the gastric body with very foul smelling, one oozing crateered ulcer at the anastomosis. Hgb today is 7.9. I discuss case with Dr Crenshaw, transfuse 2 units PRBC. PPI bid. carafate. close monitoring. (2) Upper gastrointestinal hemorrhage Current Visit: Yes Status: Acute Assessment and plan: secondary to gastric ulcer. plan as above. (3) Gastric ulcer Current Visit: Yes Status: Acute Assessment and plan: plan as above Qualifiers: Gastric ulcer chronicity: acute Gastric ulcer complication status: with hemorrhage Qualified Code(s): K25.0 - Acute gastric ulcer with hemorrhage (4) Hyperkalemia Current Visit: Yes Status: Resolved Assessment and plan: resolved - Subjective Interval history: patient denies any nausea, vomiting or abdominal pain. no bleeding. - Constitutional Vitals: Temp Pulse Resp BP Pulse Ox 97.9 F 85 20 132/68 100 06/28/16 15:01 06/28/16 15:01 06/28/16 15:01 06/28/16 15:01 06/28/16 15:01 General appearance: Present: cooperative, A&O X 3, no acute distress, answers questions appropriately - Neck Neck exam general surgery: Present: supple, trachea midline. Absent: lymphadenopathy - Respiratory Respiratory exam: Present: CTAB - Cardiovascular Cardiovascular exam: Present: RRR - GI/Abdominal GI/Abdominal exam: Present: normal bowel sounds, soft. Absent: distended, tenderness - Extremities Exam Extremities exam: Absent: pedal edema - Neurological Exam Neurological exam: Present: alert, oriented X3, no focal deficits, strengths equal and symetr throughout. Absent: facial droop, speech deficit Internal Medicine: Result - Labs CBC & Chem 7: 06/28/16 14:04 06/28/16 03:17 Labs: Short CBC 06/27/16 06/28/16 06/28/16 Range/Units 17:22 03:17 14:04 WBC 4.2 L (4.3-11.1) K/mcL Hgb 8.1 L 7.9 L 8.5 L (12.9-16.9) g/dL Hct 23.8 L 23.2 L 25.1 L (37.5-50.1) % Plt Count 88 L (140-400) K/mcL BMP 06/28/16 03:17 Sodium 135 L Potassium 3.7 Chloride 113 H Carbon Dioxide 16 L BUN 14 D Creatinine 0.62 L Glucose 88 Calcium 6.6 L - ABG Interpretation ABG results: PT/INR, D-dimer PT 11.7 Seconds (9.4-12.1) 06/25/16 13:16 Consult Discharge Plan - Plan Referrals: Pito Nelson DO [Primary Care Provider] - 07/08/16 9:30 am
[2016-06-28] MEDS: Sucralfate 1 GM TABLET PO SCH ×2 (16:50→21:03)
[2016-06-28] MEDS ORDERED: Pantoprazole 40 MG VIAL IVP SCH (18:00)
[2016-06-28] MEDS ORDERED: 0.9 % Sodium Chloride 500 ML ONE (19:27)
[2016-06-29 05:55] LABS: Basophils % 0.3 %; Eosinophils # 0.2 K/mcL (0.0-0.6); Eosinophils % 4.6 %; Hematocrit 24.2 % (37.5-50.1); Hemoglobin 8.4 g/dL (12.9-16.9); Immature Granulocytes % 0.3 % (0-4); Lymphocytes # 0.7 K/mcL (0.6-4.6); Mean Corpuscular HGB Conc 34.7 g/dL (31.6-35.5); Mean Corpuscular Hemoglobin 30.4 pg (28.0-33.3); Mean Corpuscular Volume 87.7 fL (83.0-100.0); Mean Platelet Volume 9.8 fL (9.4-12.4); Monocytes # 0.6 K/mcL (0.0-1.3); Monocytes % 17.3 %; Neutrophils # 1.9 K/mcL (1.6-8.9); Platelet Count 111 K/mcL (140-400); Red Blood Count 2.76 M/mcL (4.19-5.50); Red Cell Distribution Width 15.4 % (11.5-14.5); Segmented Neutrophils % 56.5 %
[2016-06-29] MEDS: Pantoprazole 40 MG VIAL IVP SCH (06:07)
[2016-06-29 06:13] LABS: BUN/Creatinine Ratio 10 (6-26); Blood Urea Nitrogen 6 mg/dL (8-26); Calcium 7.2 mg/dL (8.6-10.8); Carbon Dioxide 24 mEq/L (19-29); Chloride 113 mEq/L (98-109); Glucose 94 mg/dL (70-99); Magnesium 1.4 mg/dL (1.6-2.6); Osmolality,Calculated 283 (280-300); Potassium 3.2 mEq/L (3.5-4.5); Sodium 138 mEq/L (136-145); eGFR For African Americans > 60 (> 60); eGFR For Non-African Americans > 60 (> 60)
[2016-06-29] MEDS: Sucralfate 1 GM TABLET PO SCH ×2 (08:37→12:19)
--- NOTE | 2016-06-29 10:15 | Discharge Summary ---
Date of Encounter: 06/29/16 Time of Encounter: 09:45 - Discharge Diagnosis (1) Upper gastrointestinal hemorrhage Priority: Primary Status: Acute (2) Hyperkalemia Priority: Secondary Status: Resolved (3) Acute blood loss anemia Priority: Primary Status: Acute (4) Gastric ulcer Priority: Secondary Status: Chronic Qualifiers: Gastric ulcer chronicity: chronic Gastric ulcer complication status: with hemorrhage Qualified Code(s): K25.4 - Chronic or unspecified gastric ulcer with hemorrhage - Discharge Medications Prescriptions: Pantoprazole Sodium 40 mg PO BID #60 tablet. Sucralfate [Carafate] 1 gm PO QIDAC #120 tablet Home Medications: Pantoprazole Sodium 40 mg PO BID #60 tablet. 06/29/16 [Rx] Sucralfate [Carafate] 1 gm PO QIDAC #120 tablet 06/29/16 [Rx] Allergies/Adverse Reactions: Allergies No Known Allergies Allergy (Verified 06/27/16 08:47) Procedures/tests Complete & Pending: Procedures Performed prior 72 hours Category Date Time Status CT chest w/o contrast [CT chest wo con] [CT] Stat Cat Scan 06/26/16 17:52 Completed Date of admission: 06/26/16 18:07 Primary care physician: Pito Nelson, Consults: 06/28/16 09:21 Consult to Surgery [CONS] Routine Consulting Provider: [facility] Reason for Consult: Large gastric bezoar, gastroparesis Call Completed: No Discharging clinician: Roshan Hogue Anticipated date of discharge: 06/29/16 - Patient Status Disposition: Home, Self-Care Condition: Good Functional capacity at discharge: independent ambulation Overall status at discharge: patient is back to baseline - Discharge Instructions Instructions: Sucralfate (By mouth), Pantoprazole (By mouth), Gastrointestinal Bleeding (DC) Follow Up With: Pito Nelson DO [Primary Care Provider] - 07/08/16 9:30 am - Diet and Activity Activity: resume usual activities as tolerated Diet: advance to your usual diet Interval History: 65-year-old male, admitted 06/25/16 after presenting to the emergency department with hematemesis, coffee-ground emesis, lightheadedness and hypotension. The findings were consistent with upper GI hemorrhage for which an EGD was completed by Dr Crenshaw 06/25/2016. The EGD demonstrated a normal esophagus, nonbleeding gastric ulcer approximately 14 mm in greatest dimension and a large amount of residual food/bezoar in the gastric pouch. The patient was transfused without significant improvement in H&H and black tarry stool continued. The EGD was repeated 06/27/2016, with an oozing gastric ulcer described. A Hemoclip and argon plasma coagulation was applied. 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 he had a total of 6 units of RBCs transfused Patient is seen at bedside this morning with his spouse He voiced no new complains He had a BM that was described as hard and well formed, no melena His HB this morning is 8.4, it was 8.5 06/28 He is hemodynamically stable Patient's diet was advanced and he tolerated. He had hypokalemia and hypomagnessemia which were replaced uneventfully. Patient is stable to be discharged home, due to his history of refractory peptic ulcer, and this admission necessitating transfusions, patient has been scheduled to have a repeat Hb done within the next one week and follow up with PCP Educated on symptoms and signs of GI bleed and symptomatic anemia and advised to present to ER should this occur He is also educated on need for PPI and Sucralfate lifelong. Verbalized understanding, spouse at bedside. Follow up with PCP 07/08 Hospital course: As above - Time Spent with Patient Total time spent providing and/or coordinating discharge services: Less than 30 minutes - Constitutional Vitals: Temp Pulse Resp BP Pulse Ox 97.7 F 71 14 121/70 98 06/29/16 07:00 06/29/16 07:00 06/29/16 07:00 06/29/16 07:00 06/29/16 07:00 General appearance: Present: cooperative, A&O X 3, no acute distress, answers questions appropriately - Head Head exam: Present: atraumatic, normocephalic - Eye Eye exam: Present: PERRL, conjuntiva pink, sclera anicteric Pupils: Present: PERRL - Neck Neck exam general surgery: Present: supple, trachea midline. Absent: lymphadenopathy - Respiratory Respiratory exam: Present: CTAB. Absent: accessory muscle use, rales, rhonchi, wheezes - Cardiovascular Cardiovascular exam: Present: RRR, +S1, +S2. Absent: diastolic murmur, gallop, rubs, systolic murmur - GI/Abdominal GI/Abdominal exam: Present: normal bowel sounds, soft, no peritoneal signs. Absent: distended, tenderness - Extremities Exam Extremities exam: Present: warm, radial pulses palpable and symetrical. Absent : calf tenderness, cyanotic, pedal edema - Neurological Exam Neurological exam: Present: alert, CN II-XII intact, oriented X3, no focal deficits. Absent: pronater drift, facial droop, speech deficit - Skin Skin exam: Present: dry, intact
[2016-06-29 11:20] VITALS: BP 122/70
[2016-06-29] MEDS ORDERED: Magnesium Sulfate 2 GM in D5% in Water 100 ML IVPB ONE (11:53)
--- NOTE | 2016-06-29 12:26 | General Surgery Progress Note ---
Date of Encounter: 06/29/16 Time of Encounter: 12:18 Subjective Patient reports: no new complaints Narrative: General Surgery - patient appears well, voicing no complaints Afebrile, vital signs stable Abdomen: Soft nontender Laboratories: White count 3.3; hemoglobin 8.4 with hematocrit 24.2; platelet count 111,000 Electrolytes notable for potassium of 3.2 otherwise electrolytes, BUN, creatinine are stable and within normal limits Impression: Upper gastrointestinal hemorrhage with endoscopic evidence of marginal ulceration Bleeding appears to have been endoscopically controlled; hemoglobin currently 8.4, hematocrit 24.2 after transfusion 6 units PRBC Thrombocytopenia - likely due to "consumption" related to bleeding; improving HYPOKALEMIA Retained food/bezoar in the gastric remnant - [place] a chronic problem related to gastric resection during prior Whipple procedure Patient status post Whipple procedure in the remote past related to peptic ulcer disease with refractory bleeding. This may impact enteric absorption of iron as it is likely the gastric resection has impacted the stomach's ability to produce intrinsic factor that assists with absorption of iron in the distal small bowel. Recommendations: correct hypokalemia If discharged home, arrange CBC as outpatient early next week with appropriate follow-up monitor for recurrent UGI hemorrhage Objective Vital Signs - Last 8 Hours Temp Pulse Resp BP Pulse Ox 06/29/16 11:19 98.0 F 71 18 122/70 98 06/29/16 07:00 97.7 F 71 14 121/70 98 Intake and Output 06/28/16 06/29/16 06/29/16 23:59 07:59 15:59 Intake Total 1680 / 1680 120 / 120 540 / 540 Output Total 1675 / 1675 1100 / 1100 650 / 650 Balance 5 / 5 -980 / -980 -110 / -110 Intake: Oral 1330 / 1330 120 / 120 540 / 540 Blood Product 350 / 350 Rbcs Leuko Poor As-1 350 / 350 Unit [id number] Output: Urine 1675 / 1675 1100 / 1100 650 / 650 Other: Meal Breakfast Weight 85.548 kg Patient Weight 06/29/16 23:59 Weight 85.548 kg - Labs 06/29/16 05:19 06/29/16 05:19 Diabetes panel 06/29/16 Range/Units 05:19 Sodium 138 (136-145) mEq/L Potassium 3.2 L (3.5-4.5) mEq/L Chloride 113 H (98-109) mEq/L Carbon Dioxide 24 (19-29) mEq/L BUN 6 L (8-26) mg/dL Creatinine 0.63 L (0.72-1.25) mg/dL Glucose 94 (70-99) mg/dL Calcium 7.2 L (8.6-10.8) mg/dL Calcium panel 06/29/16 Range/Units 05:19 Calcium 7.2 L (8.6-10.8) mg/dL Pituitary panel 06/29/16 Range/Units 05:19 Sodium 138 (136-145) mEq/L Potassium 3.2 L (3.5-4.5) mEq/L Chloride 113 H (98-109) mEq/L Carbon Dioxide 24 (19-29) mEq/L BUN 6 L (8-26) mg/dL Creatinine 0.63 L (0.72-1.25) mg/dL Glucose 94 (70-99) mg/dL Calcium 7.2 L (8.6-10.8) mg/dL Adrenal panel 06/29/16 Range/Units 05:19 Sodium 138 (136-145) mEq/L Potassium 3.2 L (3.5-4.5) mEq/L Chloride 113 H (98-109) mEq/L Carbon Dioxide 24 (19-29) mEq/L BUN 6 L (8-26) mg/dL Creatinine 0.63 L (0.72-1.25) mg/dL Glucose 94 (70-99) mg/dL Calcium 7.2 L (8.6-10.8) mg/dL Consult Discharge Plan - Plan Referrals: Pito Nelson DO [Primary Care Provider] - 07/08/16 9:30 am Prescriptions: Pantoprazole Sodium 40 mg PO BID #60 tablet. Sucralfate [Carafate] 1 gm PO QIDAC #120 tablet
== END 2016-06-29 14:39 | disposition home or self-care (01) | DRG 378 ==
LOC: 3ANU 12:03 → EMEROO 12:03 → 3ANU 16:19 → 2NNU 06-26 18:04 → SUATTDRO 06-26 18:07 → 3ANU 06-28 12:21
PROVIDERS: ADMIT Internal Medicine; ATTEND Internal Medicine
PROC: ENDOEBX (2016-06-25 16:00)